=== PATIENT | female | born 1990 | race Caucasian/White ===

== ENCOUNTER 2019-09-04 12:09 | Emergency (ER) | payer OTHER ==
[2019-09-04 12:41] VITALS: BP 120/82
--- NOTE | 2019-09-04 12:57 | UC ---
Ear Complaint HPI - HPI Summary HPI Summary: bilateral ear pain x 1 day pain is 5 out 10, worse with cold air , better with Tylenol ,mild nasal congestion, no cough no sore throat, no fever, no chills , cold soars - History of Current Complaint Chief Complaint: UCRespiratory Stated Complaint: EAR PAIN,NAUSEA Time Seen by Provider: 09/04/19 12:44 Hx Obtained From: Patient Hx Last Menstrual Period: 08/24/2019 ?: No Onset/Duration: Gradual Onset, Lasting Days - 1, Still Present Severity Initially: Moderate Severity Currently: Moderate Pain Intensity: 5 Aggravating Factors: Cold Alleviating Factors: Nothing Associated Signs/Symptoms: Positive: URI Symptoms. Negative: Discharge, Hearing Loss, Foreign Body Sensation, Trauma to Ear, Swelling @ - Allergies/Home Medications Allergies/Adverse Reactions: Allergies Allergy/AdvReac Type Severity Reaction Status Date / Time Penicillins Allergy Hives Verified 09/04/19 12:36 Home Medications: Home Medications Ibuprofen TAB* [Advil TAB*] 800 mg PO Q6H PRN 09/04/19 [History Confirmed ] Zolpidem TAB* [Ambien TAB*] 10 mg PO BEDTIME 09/04/19 [History Confirmed ] PMH/Surg Hx/FS Hx/Imm Hx Previously Healthy: Yes - Surgical History Surgical History: Yes Surgery Procedure, Year, and Place: Right Hip Arthroscopies, [place]; , 2008, - Family History Known Family History: Negative: Diabetes - Social History Alcohol Use: None Substance Use Type: None Smoking Status (MU): Heavy Every Day Tobacco Smoker Type: Cigarettes Amount Used/How Often: 1/2 PPD Length of Time of Smoking/Using Tobacco: Since Age 21 Household Exposure Type: Cigarettes Review of Systems All Other Systems Reviewed And Are Negative: Yes Constitutional: Positive: Negative Skin: Positive: Negative Eyes: Positive: Negative ENT: Positive: Ear Ache, Nasal Discharge. Negative: Sore Throat Respiratory: Positive: Negative Is Patient Immunocompromised?: No Physical Exam Triage Information Reviewed: Yes Appearance: Well-Appearing, No Pain Distress, Well-Nourished Vital Signs: Initial Vital Signs Temp 98.9 F 09/04/19 12:35 Pulse 88 09/04/19 12:35 Resp 18 09/04/19 12:35 BP 120/82 09/04/19 12:35 Pulse Ox 100 09/04/19 12:35 Vital Signs Reviewed: Yes Eye Exam: Normal Eyes: Positive: Conjunctiva Clear ENT: Positive: Normal ENT inspection, Hearing grossly normal, Pharynx normal, TMs normal, Other - cold sore mid lower lip. 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 Discharge ED - Sign-Out/Discharge Documenting (check all that apply): Patient Departure All imaging exams completed and their final reports reviewed: No Studies - Discharge Plan Condition: Stable Disposition: HOME Prescriptions: Fluticasone NASAL SPRAY 50MCG* [Flonase NASAL SPRAY 50MCG*] 2 spray BOTH NARES DAILY #1 btl ValACYclovir (*) [Valtrex 500 mg (*)] 500 mg PO BID #6 tab Patient Education Materials: Oral Herpes Simplex Virus Infections (ED), Earache (ED) Forms: *Work Release Referrals: Hugo Celis NP [Primary Care Provider] - If Needed - Billing Disposition and Condition Condition: STABLE Disposition: Home
== END 2019-09-04 13:01 | disposition home or self-care (01) ==
LOC: UCCORT 12:09
DX: H92.03 Otalgia, bilateral (principal); B00.1 Herpesviral vesicular dermatitis; R09.89 Other specified symptoms and signs involving the circulatory and respiratory systems; R09.81 Nasal congestion; F17.210 Nicotine dependence, cigarettes, uncomplicated; Z88.0 Allergy status to penicillin
CPT/HCPCS: 99202; G0463

== ENCOUNTER 2019-10-03 13:39 | Emergency (ER) | payer OTHER ==
--- OUTSIDE RECORDS SUMMARY | 2019-10-03 13:47 | XMS REPORT | Continuity of Care Document ---
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 Problems Description No Information Available Social History Type Date Description Comments Sex Unknown Tobacco Use Start: Unknown Current Cigarette Smoker started age 21 5-10 Cigarettes Daily Smoking Status Reviewed: 07/05/19 Current Cigarette Smoker started age 21 5-10 Cigarettes Daily ETOH Use Denies alcohol use Tobacco Use Start: Unknown Patient is a current smoker, smokes every day Recreational Drug Use Denies Drug Use Exercise Type/Frequency Exercises regularly Seat Belt/Car Seat always uses seat belt Allergies, Adverse Reactions, Alerts Active Allergies Reaction Severity Comments Date Penicillin 12/26/2016 Bupropion weight gain 07/29/2017 Medications Active Medications SIG Qnty Indications Ordering Date Provider Prednisone 8 tabs day 1 36tabs S33.6xxA [facility], 09/24/2019 5mg Tablets then decrease TJ Youngblood by 1 tab per day until all are gone. Patient Seen In Office 09/24/2019 Vimal, 09/24/2019 Today TJ Youngblood [facility] Of Work [facility] TJ Youngblood Out Of Work 09/26/2019 Vimal, 09/24/2019 [facility] TJ Youngblood Zolpidem Tartrate one by mouth 30tabs G47.00 [facility], 08/06/2019 10mg Tablets every night at TJ Youngblood bedtime as needed sleep Medroxyprogesterone 1 by mouth 24tabs Fidel, 07/05/2019 Acetate every day as MD Ayaka 10mg Tablets directed Zolpidem Tartrate 1 by mouth if 30tabs [facility], 07/05/2019 1.75mg Tablets you wake up in TJ Youngblood Sub the night Ergocalciferol 1 by mouth 12caps Fidel, 07/01/2019 1.25mg (28800 Ut) every week for MD Ayaka Capsules a year Metronidazole one appl per 70G N89.8 [facility], 06/29/2019 0.75% Gel vagina every MD Ayaka night at bedtime x 5d Fluconazole 1 by mouth 2tabs N89.8 Fidel, 06/29/2019 150mg Tablets today repeat in MD Ayaka 7 days Cyclobenzaprine HCL 1 by mouth at 90tabs [facility], 06/14/2019 10mg Tablets bedtime TJ Youngblood Ibuprofen 1 by mouth 90tabs [facility], 06/08/2019 800mg Tablets three times a TJ Youngblood day as needed Metoprolol Tartrate 1 by mouth once 30tabs [facility], 04/28/2019 25mg Tablets a day TJ Youngblood Albuterol Sulfate HFA 2 puffs every 4 2units [facility], 04/28/2019 108(90Base) hrs/prn cough TJ Youngblood mcg/Act Aerosol or wheezing Ondansetron 1 by mouth q12 30tabs [facility], 02/19/2019 8mg Tablets Dispers hour as needed TJ Youngblood nausea Rizatriptan Benzoate 1 by mouth at 14tabs G43.009 [facility], 06/03/2018 10mg Tablets onset of TJ Youngblood migraine may repeat x2 with at least 2 hours between doses Acetaminophen ER 2 by mouth 180tabs [facility], 03/19/2017 650mg Tablets ER every 8 hours TJ Youngblood History Medications Zolpidem Tartrate one by mouth 30tabs G47.00 [facility], 07/05/2019 - 10mg Tablets every night at TJ Youngblood 08/04/2019 bedtime as needed sleep Out Of Work today and [facility], 06/14/2019 - [facility] tomorrow TJ Youngblood 09/24/2019 Out Of Work 06/10/19, Vimal, 06/10/2019 - [facility] 06/11/19, TJ Youngblood 06/14/2019 06/12/19, 06/13/19 Zutmvwedhgdv-Anntxkx-Ihia F41.9 Vimal 06/10/2019 - ine TJ Youngblood 06/10/2019 [phone] Tablets Baclofen take 1 tablet 90tabs F41.9 Vimal, 06/10/2019 - 20mg Tablets three times a TJ Youngblood 06/14/2019 day as needed Methylprednisolone as directed 1pack Vimal 06/10/2019 - 4mg Tablets dose pack TJ Youngblood 06/14/2019 Tramadol HCL 1-2 every 4-6 12tabs Vimal 06/10/2019 - 50mg Tablets hours TJ Youngblood 06/14/2019 Zolpidem Tartrate ER 1 by mouth at 30tabs G47.00 Vimal 06/08/2019 - 12.5mg bedtime TJ Youngblood 07/05/2019 Tablets ER Zolpidem Tartrate 1 by mouth if 30tabs Vimal 06/08/2019 - 1.75mg you wake up in TJ Youngblood 07/05/2019 Tablets Sub the night Out Of Work today Vimal 06/08/2019 - [facility] TJ Youngblood 06/10/2019 Ketoconazole apply to scalp, 120ml Vimal 05/10/2019 - 2% Shampoo leave in place TJ Youngblood 06/08/2019 for 5 minutes and rinse Out Of Work today R69 Vimal 04/29/2019 - [facility] TJ Youngblood 06/08/2019 Medications Administered in Office Medication SIG Qnty Indications Ordering Provider Date Inj Triamcinolone (Kenalog) Im Natalie Celis NP 06/08/2019 10 MG, Injection Inj Triamcinolone (Kenalog) Im Natalie Celis NP 11/10/2017 10 MG, Injection Inj Triamcinolone (Kenalog) Im Natalie Celis NP 09/12/2017 10 MG, Injection Immunizations CPT Code Status Date Vaccine Lot # 23895 Refused 05/12/2019 Immunization Td 7 Yrs Or Older 30748 Refused 05/12/2019 Afluria Or Fluvirin Flu Vac Intramuscular 18447 Refused 04/03/2018 Afluria Or Fluvirin Flu Vac Intramuscular 84733 Refused 05/13/2017 Influenza Vac, Quadrivalent, Split, 0.5mL Dosage, Im Use 06720 Refused 12/26/2016 Afluria Or Fluvirin Flu Vac Intramuscular Vital Signs Date Vital Result Comment 09/24/2019 2:40pm Body Temperature 98.2 F Weight 148.25 lb Heart Rate 102 /min BP Systolic 108 mmHg BP Diastolic 82 mmHg Respiratory Rate 16 /min Height 67 inches 5'7" O2 % BldC Oximetry 98 % BMI (Body Mass Index) 23.2 kg/m2 06/29/2019 8:17am Weight 163.00 lb BP Systolic 118 mmHg BP Diastolic 70 mmHg Height 67 inches 5'7" BMI (Body Mass Index) 25.5 kg/m2 Last Menstrual Period [id number] Results Test Acquired Date Facility Test Result H/L Range Note Laboratory test 07/05/2019 [facility] PDF SEE IMAGE finding [address] [facility] [id number] [place] [address] 216 [phone] Surgical/Patholog 07/05/2019 [facility] . See Comment: [address] [place] [address] [phone] . See Comment: 2 . See Comment: 3 . See Comment: 4 . See Comment: 5 . See Comment: 6 . See Comment: 7 . See Comment: 8 Tesosterone LC, F&T Fem/CHLD 06/29/2019 [facility] Testosterone 17 9 Sex Binding Globulin 43 nmol/L 10 Testosterone Free 2.4 11 Laboratory test finding 06/29/2019 [facility] Dhea Sulfate 135 g/dL (32- 270) 12 CBC with Auto Diff-fcmg 06/29/2019 [facility] WBC 8.1 K/uL 4.1-11.0 13 RBC 3.80 M/uL Low 4.00-5.40 14 Hemoglobin 13.3 gm/dL 12.0-16.0 15 Hematocrit 38.0 % 36.0-47.0 16 MCV 99.8 fL High 80.0-95.0 17 MCH 34.8 pg High 27.0-32.0 18 MCHC 34.9 g/dL 32.0-36.0 19 RDW 12.8 % 10.5-14.5 20 PLT Count 220 K/ul 150-400 21 MPV 8.6 FL 7.1-10.7 Neutrophil 72.5 % 35.0-75.0 22 Lymphocyte 16.6 % 16.0-52.0 23 Monocyte 8.5 % High 0.0-8.0 24 Eosinophil 1.9 % 0.0-5.0 Basophil 0.5 % 0.0-4.0 Abs Neutrophils 5.9 K/uL 1.8-7.7 25 Abs Lymphocytes 1.3 K/uL 1.2-4.8 26 Abs Monocytes 0.7 K/uL 0.0-0.8 27 Abs Eosinophils 0.2 K/uL 0.0-0.5 28 Abs Basophils 0.0 K/uL 0.0-0.2 29 Laboratory test finding 06/29/2019 [facility] TSH 1.16 uIU/mL 0.35-4.94 FSH 5.9 mIU/ml 30 LH 11.1 mIU/ml 31 Prolactin 9.6 ng/ml 32 Comprehensive Met Panel-FCMG 06/29/2019 [facility] Sodium 140 mmol/L 135- 146 33 Potassium 3.8 mmol/L 3.5-5.2 Chloride# 108 mmol/L 97-110 34 Carbon Dioxide 25 mmol/L 24-34 Calcium 8.9 mg/dL 8.5-10.5 35 Glucose 93 mg/dL 70-105 BUN 9 mg/dL 6-26 Creatinine 0.6 mg/dL 0.5-1.4 Total Protein 5.9 g/dL Low 6.0-8.0 Albumin 4.6 g/dL 3.6-4.9 Globulin 1.3 g/dL Low 2.0-3.5 A/G Ratio 3.5 Ratio High 1.0-2.2 Total Bilirubin 0.4 mg/dL 0.1-1.3 Alkaline Phosphatase 45 U/L 24-140 Alt 12 U/L 3-42 Ast 17 U/L 8-42 Anion Gap 7 mmol/L 5-15 36 Female Egfr 124 >60 37 Male Egfr 137 >60 38 Lipid 06/29/2019 [facility] Cholesterol 163 mg/dL 50-199 Triglycerides 90 mg/dL 30-200 HDL 53 mg/dL 35-85 39 Chol/ HDL Ratio 3.1 ratio Low 3.7-5.6 VLDL 18 mg/dL 2-29 LDL (Calc) 92 mg/dL 20-99 40 Laboratory test 06/29/2019 [facility] Vitamin D 25 14 ng/mL Low 30-100 41 finding Hydroxy 1 Urinalysis DIP 06/29/2019 Done In Doctors Office Z#Color yellow (In-House) Z#Appearance clear Z#Urine,Leukocytes neg Z#Nitrite neg Z#Urine,Protein neg Z#Blood, Urine neg Z#Ketones Urine neg Z#Glu Urine neg Laboratory test 06/29/2019 [facility] Urine Culture Microbiology res 42 finding <SEE NOTE> Affirm 05/12/2019 [facility] Trichomonas Negative Negative Vaginalis Gardnerella Vaginalis Negative Negative Sara Species Negative Negative Chlamydia & GC, Dna-FCMG 05/12/2019 [facility] Chlamydia NOT DETECTED Not Detected GC NOT DETECTED Not Detected Laboratory test 05/12/2019 [facility]path Pap SEE NOTE 43 finding Laboratory test 05/12/2019 [facility] HPV Laboratory Allia 44 finding [phone] <SEE NOTE> Drugs of Abuse 03/31/2019 [facility] Amphetamines,Ur NEGATIVE <1000 w/o THC-FCMG ine ng/mL Barbiturates,Urine NEGATIVE <200 ng/mL Benzodiazepines, Urine NEGATIVE <200 ng/mL Bupernorphrine/Norbu,Urine NEGATIVE <10 ng/mL Cocaine Metabolites,Urine NEGATIVE <300 ng/mL Methadone,Urine NEGATIVE <300 ng/mL Opiates,Urine NEGATIVE <300 ng/mL Oxycodone,Urine NEGATIVE <100 ng/mL Phencyclidine,Urine NEGATIVE <25 ng/mL 1 Material submitted: . PART A: cervix - CERVICAL BIOPSY AT 9:00 PART B: cervix - CERVICAL BIOPSY AT 12:00 2 Clinician provided ICD-10: D26.0 3 Clinical history: . ABNORMAL VISUAL AREA OF CERVIX 4 Diagnosis: A)CERVICAL BIOPSY AT 9:00: BENIGN SQUAMOUS MUCOSA. B)CERVICAL BIOPSY AT 12:00: CHRONIC CERVICITIS. [facility] 07/07/2019 1150 Local 5 Electronically signed: . Yen Cannon MD, Pathologist 6 Gross description: . Specimen A received in formalin and labeled "9:00 cervix" are three irregular white soft tissue fragments ranging from 0.2 to 0.5 cm in greatest dimension. Small amounts of clear mucus is present. Totally submitted. (1) Specimen B received in formalin and labeled "12:00" is a 0.5 x 0.3 x 0.2 cm irregular white soft tissue fragment. Totally submitted. (1) DE /CIF 07/07/2019 0639 Local 7 Pathologist provided ICD-10: N72 8 CPT . 009302, 563765 9 Reference range: 9 to 55 Unit: ng/dL Total Testosterone, Females 18 years and older Premenopausal 9-55 ng/dL Postmenopausal 5-32 ng/dL REFERENCE INTERVAL: Testosterone, LC-MS/MS Access complete set of age- and/or gender-specific reference intervals for this test in the [facility] ([facility]). Test developed and characteristics determined by [facility]. See Compliance Statement B: [employer] 10 Reference range: 30 to 135 Unit: nmol/L REFERENCE INTERVAL: Sex Hormone Binding Globulin Access complete set of age- and/or gender-specific reference intervals for this test in the [facility] ([facility]). 11 Reference range: 0.8 to 7.4 Unit: pg/mL To convert to pmol/L, multiply pg/mL by 3.47 The concentration of Free Testosterone is derived from a mathematical expression based on the constant for the binding of testosterone to sex hormone binding globulin. Testosterone, Free LC-MS/MS Reference Interval for Females 18 years and older Postmenopausal: 0.6 - 3.8 pg/mL REFERENCE INTERVAL: Testosterone, Free LC-MS/MS Access complete set of age- and/or gender-specific reference intervals for this test in the [facility] ([facility]). Test developed and characteristics determined by [facility]. See Compliance Statement B: [employer] Performed by [facility], [address] [place] [id number] [email or web address], [email or web address] M Tse MD, Lab. Director Unless otherwise specified, testing performed by [facility] [employer] [address] [place] [address] 12 Unless otherwise specified, testing performed by [facility] of [employer], [employer] [address] [place] [address] 13 Updated Reference Range 05/2019 14 Updated Reference Range 05/2019 15 Updated Reference Range 05/2019 16 Updated Reference Range 05/2019 17 Updated Reference Range 05/2019 18 Updated Reference Range 05/2019 19 Updated Reference range 05/2019 20 Updated Reference range 05/2019 21 Updated Reference Range 05/2019 22 Updated Reference Range 05/2019 23 Updated Reference Range 05/2019 24 Updated Reference Range 05/2019 25 Updated Reference Range 05/2019 26 Updated Reference Range 05/2019 27 Updated Reference Range 05/2019 28 Updated Reference Range 05/2019 29 Updated Reference Range 05/2019 30 FSH Female Normal Values: Mid-Follicular: 3.8-8.8 mIU/mL Mid-cycle Peak: 4.5-22.5 mIU/mL Mid-Luteal: 1.8-5.1 mIU/mL Post-menopausal:16.7-113.6 mIU/mL 31 Lutenizing Hormone Female Normal Values: Mid-Follicular: 2.1-10.9 mIU/mL Mid-cycle Peak: 19.2-103.0 mIU/mL Mid-Luteal: 1.2-12.9 mIU/mL Post-menopausal:10.9-58.6 mIU/mL 32 Prolactin Female Normal Values: Pre-menopausal: 3.3-26.7 ng/mL Post-menopausal:2.7-19.6 ng/mL 33 Updated reference range on new analyzer 34 Updated reference range on new analyzer 35 Updated reference range 11-18-2018 36 Updated Reference Range 37 Concerning GFR Guidelines for Americans: Normal function or mild renal disease, if clinically at risk: >/= 60 mL/min Moderately decreased: 30-59 Severely decreased: 15-29 Renal failure: <15 There is reduced accuracy above 60ml/min/1.73 m squared, but the numeric value may be clinically useful in the near 60 range 38 Concerning GFR Guidelines: Normal function or mild renal disease, if clinically at risk: >/= 60 mL/min Moderately decreased: 30-59 Severely decreased: 15-29 Renal failure: <15 There is reduced accuracy above 60ml/min/1.73 m squared, but the numeric value may be clinically useful in the near 60 range Glomerular Filtration Rate (GFR) is estimated based on the CKD-EPI equation, which assumes a steady state for creatinine as recommended by the National Kidney Disease Education Program in conjunction with the National Institutes of Health and the National Kidney Foundation. Clinical conditions in which it may be necessary to measure GFR by using clearance methods include extremes of age and body size, severe malnutrition or obesity, diseases of skeletal muscle, paraplegia or quadriplegia, vegetarian diet, rapidly changing kidney function, and calculation of the dose of potentially toxic drugs that are excreted by the kidneys. 39 Per NCEP ATP III Guidelines: Results lower than 40 mg/dL are suggestive of increased risk for coronary artery disease. Results > or = to 60 mg/dL are considered a negative risk factor. 40 Per NCEP ATP III Guidelines: Normal Population <130 Patients with medical conditions: CHD/DM Optimal: <100 Borderline high: 130-159 High: 160-189 Very high: >189 41 Clinical Guidelines for recommended serum 25(OH)Vitamin D Deficient at less than 20 ng/mL Insufficient at 20 to <30 ng/mL Sufficient at 30-100 ng/mL Toxicity at greater than 100 ng/mL 42 Microbiology results SOURCE Clean Catch Midstream FINAL RESULT No growth 43 [facility]. [address] [place] [address] CYTOLOGY REPORT Source of Specimen(s): SurePath Cervical / Endocervical Pap Smear - One Vial Date of Last Menstrual Period: None Provided Other Clinical Conditions: HPV ASSAY REQUESTED Specimen Adequacy SATISFACTORY FOR EVALUATION PRESENCE OF ENDOCERVICAL/TRANSFORMATION ZONE COMPONENT General Categorization NEGATIVE FOR INTRAEPITHELIAL LESION OR MALIGNANCY Interpretation NEGATIVE FOR INTRAEPITHELIAL LESION OR MALIGNANCY Comment HPV testing will be performed and a separate report will be issued. Reported: 05/17/2019 11:54 Electronically Signed Out By Jie BASHIR(ASCP) andrei ICD9 Code: Z01.419 CPT code: A: [id number] Unless otherwise specified, testing performed by [employer] [facility] [address] [address] 44 [employer] [address] [address] Amplified Molecular High Risk HPV Test Patient Name:JENNIFER LANTIGUA Patient :1990 Ordering Physician:NATALIE CELIS [facility] Accession Number [id number] Specimen(s) Received A: High Risk HPV SP Cervical/Endocervical Pap Smear - One Vial Other Case Numbers: [id number] Diagnosis RISK GROUPS RESULTS High Risk NEGATIVE Tested for HPV Types (16, 18, 31, 33, 35, 39, 45, 51, 52, 56, 58, 59, 66, 68) Comments The performance characteristics of the SurePath residual specimen tested for this assay were validated by [facility] and licensed for use by the [facility] Department of Health. This test has not been licensed by the FDA and the result is not intended to be used as the sole means for clinical diagnosis or patient management. Negative results do not rule out the presence of disease. Reported: 05/18/2019 08:31 Electronically Signed Out By Ayanna Noguera [email or web address] Dorota Osmanmillie Procedures Date Code Description Status 07/05/2019 34931 Echography Transvaginal Completed 07/05/2019 54070 Colposcopy Cervix W/Upper Vagina W/Biopsy Of Cervix Completed 06/08/2019 40462 Inj,Trigger Point(S) Single Or Multiple PTS, 1 Or 2 Muscle Completed Group( Medical Devices Description No Information Available Encounters Type Date Location Provider Dx Diagnosis Office Visit 06/29/2019 Ayaka Parra, N89.8 Other specified 8:00a MD Ayaka Parra MD noninflammatory disorders of vagina N91.4 Secondary oligomenorrhea N60.19 Diffuse cystic mastopathy of unspecified breast R35.0 Frequency of micturition D26.0 Other benign neoplasm of cervix uteri R68.82 Decreased libido R53.83 Other fatigue F17.200 Nicotine dependence, unspecified, uncomplicated Office Visit 06/14/2019 2:15p Natalie Ham NP A08.4 Viral intestinal infection, unspecified Z68.25 Body mass index (BMI) 25.0-25.9, adult Office Visit 06/10/2019 11:30a Natalie Ham NP M54.5 Low back pain Z13.31 Encounter for screening for depression Z68.26 Body mass index (BMI) 26.0-26.9, adult Office Visit 06/08/2019 12:00p Natalie Ham, G47.00 Insomnia, unspecified [employer] M62.89 Other specified disorders of muscle Z68.25 Body mass index (BMI) 25.0-25.9, adult Office Visit 05/12/2019 1:00p Natalie Ham NP Z01.419 Encntr for tyre retreader exam (general) (routine) w/o abn findings Z11.3 Encntr screen for infections w sexl mode of transmiss D48.5 Neoplasm of uncertain behavior of skin Z68.26 Body mass index (BMI) 26.0-26.9, adult Office Visit 04/29/2019 3:15p Natalie Ham NP R69 Illness, unspecified Office Visit 04/28/2019 1:45p Natalie Ham NP B07.0 Plantar wart Z68.26 Body mass index (BMI) 26.0-26.9, adult Office Visit 03/31/2019 12:00p Natalie Ham NP F33.1 Major depressive disorder, recurrent, moderate L72.3 Sebaceous cyst Z68.26 Body mass index (BMI) 26.0-26.9, adult Assessments Date Code Description Provider 09/24/2019 S33.6xxA Sprain of sacroiliac joint, initial Natalie Celis NP encounter 07/05/2019 D26.0 Other benign neoplasm of cervix uteri Ayaka Parra MD 07/05/2019 N91.4 Secondary oligomenorrhea Ayaka Parra MD 07/05/2019 R93.89 Abnormal findings on diagnostic imaging Ayaka Parra MD of other specified body structures 07/05/2019 N91.4 Secondary oligomenorrhea [employer], Fidel 07/05/2019 E55.9 Vitamin D deficiency, unspecified Ayaka Parra MD 06/29/2019 N89.8 Other specified noninflammatory Ayaka Parra MD disorders of vagina 06/29/2019 N91.4 Secondary oligomenorrhea Ayaka Parra MD 06/29/2019 N60.19 Diffuse cystic mastopathy of Ayaka Parra MD unspecified breast 06/29/2019 R35.0 Frequency of micturition Ayaka Parra MD 06/29/2019 D26.0 Other benign neoplasm of cervix uteri Ayaka Parra MD 06/29/2019 R68.82 Decreased libido Ayaka Parra MD 06/29/2019 R53.83 Other fatigue Ayaka Parra MD 06/29/2019 F17.200 Nicotine dependence, unspecified, Ayaka Parra MD uncomplicated 06/29/2019 N91.4 Secondary oligomenorrhea [facility] 06/29/2019 R53.83 Other fatigue [facility] 06/29/2019 R35.0 Frequency of micturition [facility] 06/14/2019 A08.4 Viral intestinal infection, unspecified Natalie Celis NP 06/14/2019 Z68.25 Body mass index (BMI) 25.0-25.9, adult Natalie Celis NP 06/10/2019 M54.5 Low back pain Natalie Celis NP 06/10/2019 Z13.31 Encounter for screening for depression Natalie Celis NP 06/10/2019 Z68.26 Body mass index (BMI) 26.0-26.9, adult Natalie Celis NP 06/08/2019 G47.00 Insomnia, unspecified Natalie Celis NP 06/08/2019 M62.89 Other specified disorders of muscle Natalie Celis NP 06/08/2019 Z68.25 Body mass index (BMI) 25.0-25.9, adult Natalie Celis NP 05/12/2019 Z01.419 Encounter for gynecological examination Natalie Celis NP (general) (routine) without abnormal findings 05/12/2019 Z11.3 Encounter for screening for infections Natalie Celis NP with a predominantly sexual mode of transmission 05/12/2019 D48.5 Neoplasm of uncertain behavior of skin Natalie Celis NP 05/12/2019 Z68.26 Body mass index (BMI) 26.0-26.9, adult Natalie Celis NP 05/12/2019 Z01.419 Encntr for tyre retreader exam (general) (routine) [facility]o [facility]n findings 04/29/2019 R69 Illness, unspecified Natalie Celis, [employer] 04/28/2019 B07.0 Plantar wart Natalie Celis, [employer] 04/28/2019 Z68.26 Body mass index (BMI) 26.0-26.9, adult Natalie Celis, [employer] 03/31/2019 F33.1 Major depressive disorder, recurrent, Natalie Celis, [employer] moderate 03/31/2019 L72.3 Sebaceous cyst Natalie Celis, [employer] 03/31/2019 Z68.26 Body mass index (BMI) 26.0-26.9, adult Natalie Celis, [employer] 03/31/2019 Z79.899 [facility] [place] [facility] Plan of Treatment Future Appointment(s):10/04/2019 10:45 am - Ayaka Parra MD at Ayaka Parra MD10/04/2019 10:20 am - Fidel Rousseau at Ayaka Parra MD Functional Status Description No Information Available Mental Status Description No Information Available Referrals Refer to Dr Reason for Referral Status Appt Date Shine Llanos MD [facility] [address] [address] [phone] Kit Valdez M.D. Closed 06/29/2019 [address] [place] [address] [phone] Julio Martinez MD chronic rash right inner eye faxed Patient Declined 11/2019 referral and info, waiting to hear back with appt info. 04/28/19 [address] [place], [place] [address] Effective 08/24/18 [phone]
[2019-10-03 14:04] VITALS: BP 111/76
--- NOTE | 2019-10-03 14:25 | UC ---
FLU HPI - History of Current Complaint Chief Complaint: UCGI Stated Complaint: VOMITING Time Seen by Provider: 10/03/19 14:25 Hx Last Menstrual Period: 09/11/19 Pain Intensity: 0 - Allergy/Home Medications Allergies/Adverse Reactions: Allergies Allergy/AdvReac Type Severity Reaction Status Date / Time Penicillins Allergy Hives Verified 10/03/19 13:59 Home Medications: Home Medications Zolpidem TAB* [Ambien TAB*] 10 mg PO BEDTIME 09/04/19 [History Confirmed ] PMH/Surg Hx/FS Hx/Imm Hx - Surgical History Surgical History: Yes Surgery Procedure, Year, and Place: Right Hip [place]op[place], [place]; , 2008, [place] - Family History Known Family History: Negative: Diabetes - Social History Alcohol Use: None Substance Use Type: None Smoking Status (MU): Heavy Every Day Tobacco Smoker Type: Cigarettes Amount Used/How Often: 1/2 PPD Length of Time of Smoking/Using Tobacco: Since Age 21 Household Exposure Type: Cigarettes Physical Exam Vital Signs: Initial Vital Signs Temp 98.1 F 10/03/19 13:59 Pulse 82 10/03/19 13:59 Resp 16 10/03/19 13:59 BP 111/76 10/03/19 13:59 Pulse Ox 100 10/03/19 13:59 Discharge ED - Discharge Plan Referrals: Hugo Celis NP [Primary Care Provider] -
--- NOTE | 2019-10-03 14:33 | UC ---
General HPI - HPI Summary HPI Summary: 29 yo female presents with nausea and vomiting. She tells me that her was sick with a GI bug a few days ago - recovered yesterday. Yesterday pt developed nausea and vomiting multiple times from yesterday afternoon into today. She went to work this morning, but was sent home due to illness. She is here requesting a note for work. She is drinking water, but has not had anything to eat today. She denies fever, chills, sinus symptoms, sore throat, cough, SOB, chest pain, abdominal pain, diarrhea, dysuria, flank pain. States no chance of today. - History of Current Complaint Chief Complaint: UCGI Stated Complaint: VOMITING Time Seen by Provider: 10/03/19 14:25 Hx Obtained From: Patient Hx Last Menstrual Period: 09/11/19 Onset/Duration: Sudden Onset Current Severity: None Pain Intensity: 0 - Allergy/Home Medications Allergies/Adverse Reactions: Allergies Allergy/AdvReac Type Severity Reaction Status Date / Time Penicillins Allergy Hives Verified 10/03/19 13:59 Home Medications: Home Medications Zolpidem TAB* [Ambien TAB*] 10 mg PO BEDTIME 09/04/19 [History Confirmed ] Ondansetron ODT TAB* [Zofran 4 MG Odt TAB*] 4 mg PO Q8H PRN #12 tab.odt [Rx] PMH/Surg Hx/FS Hx/Imm Hx - Additional Past Medical History Additional PMH: Insomnia - Surgical History Surgical History: Yes Surgery Procedure, Year, and Place: Right Hip Arthroscopies, [place]; , 2008, [place] - Family History Known Family History: Negative: Diabetes - Social History Lives: With Family Alcohol Use: None Substance Use Type: None Smoking Status (MU): Heavy Every Day Tobacco Smoker Type: Cigarettes Amount Used/How Often: 1/2 PPD Length of Time of Smoking/Using Tobacco: Since Age 21 Household Exposure Type: Cigarettes Review of Systems All Other Systems Reviewed And Are Negative: No Constitutional: Positive: Negative Skin: Positive: Negative Eyes: Positive: Negative ENT: Positive: Negative Respiratory: Positive: Negative Cardiovascular: Positive: Negative Gastrointestinal: Positive: Vomiting, Nausea Genitourinary: Positive: Negative Neurological/Mental Status: Positive: Negative Psychological: Positive: Negative Physical Exam - Summary Physical Exam Summary: GENERAL: NAD. WDWN. No pain distress. SKIN: No rashes, sores, or open wounds. HEENT: Head: AT/NC Eyes: PERRLA. EOM intact. Conjunctiva clear without inflammation or discharge. Ears: Hearing grossly normal. TMs intact, no bulging, erythema, or edema. Nose: Nasal mucosa pink and moist. NTTP maxillary and frontal sinus. Throat: Posterior oropharynx without exudates, erythema, or tonsillar enlargement. Uvula midline. NECK: Supple. Nontender. No lymphadenopathy. CHEST: CTAB. No r/r/w. No accessory muscle use. Breathing comfortably and in no distress. CV: RRR. Pulses intact. Brisk cap refill. ABDOMEN: Soft. NTTP. No distention or guarding. No CVA tenderness. Bowel sounds present NEURO: Alert. PSYCH: Age appropriate behavior. Triage Information Reviewed: Yes Vital Signs: Initial Vital Signs Temp 98.1 F 10/03/19 13:59 Pulse 82 10/03/19 13:59 Resp 16 10/03/19 13:59 BP 111/76 10/03/19 13:59 Pulse Ox 100 10/03/19 13:59 Vital Signs Reviewed: Yes Course/Dx - Course Course Of Treatment: Suspect viral gastritis. Rx for zofran and advised to advance diet as tolerated. Work note for today and tomorrow provided. - Diagnoses Provider Diagnosis: Gastroenteritis Discharge ED - Sign-Out/Discharge Documenting (check all that apply): Patient Departure All imaging exams completed and their final reports reviewed: No Studies - Discharge Plan Condition: Stable Disposition: HOME Prescriptions: Ondansetron ODT TAB* [Zofran 4 MG Odt TAB*] 4 mg PO Q8H PRN #12 tab.odt PRN Reason: Nausea Patient Education Materials: Gastroenteritis (ED) Forms: *Work Release Referrals: Hugo Celis NP [Primary Care Provider] - Additional Instructions: If you develop a fever, shortness of breath, chest pain, new or worsening symptoms - please call your PCP or go to the ED immediately. Advance your diet as tolerated beginning with a BRAT diet (bananas, rice, applesauce, toast) - Billing Disposition and Condition Condition: STABLE Disposition: Home
[2019-10-03] MEDS ORDERED: Ondansetron ODT TAB* 4 MG SL ONE (14:38)
== END 2019-10-03 14:45 | disposition home or self-care (01) ==
LOC: UCCORT 13:39
DX: K52.9 Noninfective gastroenteritis and colitis, unspecified (principal); F17.210 Nicotine dependence, cigarettes, uncomplicated; Z88.0 Allergy status to penicillin
CPT/HCPCS: 99212; A9270-GY; G0463